=== PATIENT | female | born 1945 ===

== ENCOUNTER 2017-12-06 12:27 | Emergency (ER) | payer MEDICARE, BC ==
--- NOTE | 2017-12-06 13:12 | UC ---
Respiratory Complaint HPI - HPI Summary HPI Summary: 3-4 DAYS OF LOW GRADE FEVER, MACIAS, FATIGUE, CONGESTION AND LEFT SIDED PLEURITIC PAIN. HAS MILD COUGH. DENIES SOB OR CP. - History of Current Complaint Chief Complaint: UCRespiratory Stated Complaint: FEVER, CHEST COMPLAINT Time Seen by Provider: 12/06/17 12:47 Hx Obtained From: Patient Onset/Duration: Gradual Onset, Lasting Days, Still Present Timing: Constant Severity Initially: Moderate Severity Currently: Moderate Pain Intensity: 0 Pain Scale Used: 0-10 Numeric Character: Cough: Nonproductive Aggravating Factors: Nothing Alleviating Factors: Nothing Associated Signs And Symptoms: Positive: Fever, Chills, Nasal Congestion. Negative: Dyspnea, Hemoptysis - Allergies/Home Medications Allergies/Adverse Reactions: Allergies Allergy/AdvReac Type Severity Reaction Status Date / Time Penicillins Allergy Altered Verified 12/06/17 12:39 Mental Status sulfamethoxazole Allergy Hives Verified 12/06/17 12:39 [From Bactrim] trimethoprim [From Bactrim] Allergy Hives Verified 12/06/17 12:39 Home Medications: Home Medications Folic Acid TAB* [Folvite TAB*] 1 mg PO DAILY 12/06/17 [History Confirmed ] Hydroxychloroquine TAB* [Plaquenil TAB*] 200 mg PO BID 12/06/17 [History Confirmed 12/06/17] Methotrexate/Pf [Otrexup 25 mg/0.4 ml Auto-Inj] 25 mg SUBCUT WEEKLY 12/06/17 [ History Confirmed 12/06/17] Montelukast Sodium TAB* [Singulair 10 MG TAB*] 10 mg PO DAILY 12/06/17 [History Confirmed 12/06/17] celeCOXIB CAP* [Celebrex CAP*] 200 mg PO DAILY 12/06/17 [History Confirmed 12/06] oxyCODONE/Acetam5/325MG PREPAK [Percocet 5/325 TAB*] 1 tab PO PRN 12/06/17 [ History] predniSONE TAB* [Deltasone 1 MG TAB*] 4 mg PO DAILY 12/06/17 [History Confirmed 12/06/17] traZODone TAB* [Desyrel TAB*] 100 mg PO DAILY 12/06/17 [History Confirmed ] PMH/Surg Hx/FS Hx/Imm Hx - Additional Past Medical History Additional PMH: ARTHRITIS - Surgical History Surgical History: Yes Surgery Procedure, Year, and Place: 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 jacquelyn. cataracts, - Family History Known Family History: Negative: Hypertension - Social History Alcohol Use: None Substance Use Type: None Smoking Status (MU): Former Smoker Review of Systems Constitutional: Fever, Chills, Fatigue ENT: Nasal Discharge Respiratory: Cough Cardiovascular: Negative Gastrointestinal: Negative Neurological: Headache All Other Systems Reviewed And Are Negative: Yes Physical Exam Triage Information Reviewed: Yes Appearance: Well-Appearing, No Pain Distress, Well-Nourished Vital Signs: Initial Vital Signs Temp 98.5 F 12/06/17 12:45 Pulse 67 12/06/17 12:45 Resp 18 12/06/17 12:45 BP 148/67 12/06/17 12:45 Pulse Ox 97 12/06/17 12:45 Vital Signs Reviewed: Yes Eyes: Positive: Conjunctiva Clear ENT: Positive: Hearing grossly normal, Pharynx normal, TMs normal Neck: Positive: Supple, Nontender, No Lymphadenopathy Respiratory Exam: Normal Cardiovascular Exam: Normal Abdomen Description: Positive: Soft Musculoskeletal: Positive: No Edema Neurological: Positive: Alert Psychological: Positive: Age Appropriate Behavior Skin: Negative: rashes UC Diagnostic Evaluation - Laboratory O2 Sat by Pulse Oximetry: 97 - Radiology Xray Interpretation: Positive (See Comments) - CXR - LEFT UPPER LOBE CONSOLIDATION. Radiology Interpretation Completed By: Radiologist Respiratory Course/Dx - Differential Dx/Diagnosis Provider Diagnoses: LEFT UPPER LOBE PNEUMONIA Discharge - Sign-Out/Discharge Documenting (check all that apply): Patient Departure All imaging exams completed and their final reports reviewed: Yes - Discharge Plan Condition: Stable Disposition: HOME Prescriptions: levoFLOXacin [Levofloxacin] 750 mg PO DAILY #7 tablet Patient Education Materials: Pneumonia (ED) Referrals: Care [facility] [Outside] - 2 Weeks Additional Instructions: CHEST X-RAY SHOWS A PNEUMONIA IN THE LEFT LUNG. TAKE THE ANTIBIOTIC DAILY FOR 7 DAYS IN THE MORNING. RECOMMEND REPEAT CHEST X-RAY IN 4-6 WEEKS TO DOCUMENT RESOLUTION. FOLLOW-UP WITH A PCP IF YOU'RE NOT IMPROVING EXPECTED. GO TO THE ED WITHOUT FAIL IF YOU DEVELOP WORSENING FEVER, SHORTNESS OF BREATH, CHEST PAIN OR ANY OTHER CONCERNING SYMPTOMS. CALL THE NUMBER BELOW FOR ASSISTANCE IN ESTABLISHING WITH A PCP An additional resource available to assist in finding the appropriate physician for your health care needs is [facility] ([facility]). You may contact them by calling [phone]. - Billing Disposition and Condition Condition: STABLE Disposition: Home
--- NOTE | 2017-12-06 13:32 | RAD ---
HISTORY: FEVER, COUGH, LEFT SIDED PLEURITIC PAIN COMPARISONS: None VIEWS: 4: Frontal dual-energy and lateral views of the chest. FINDINGS: CARDIOMEDIASTINAL SILHOUETTE: The cardiomediastinal silhouette is normal. LEATHA: The leatha are normal. PLEURA: The costophrenic angles are sharp. No pleural abnormalities are noted. LUNG PARENCHYMA: There is confluent alveolar opacification within the periphery of the left upper lobe ABDOMEN: The upper abdomen is clear. There is no subphrenic gas. BONES AND SOFT TISSUES: Mild degenerative changes are noted. OTHER: None. IMPRESSION: LEFT UPPER LOBE CONSOLIDATION. RECOMMEND FOLLOW-UP UNTIL RESOLUTION TO EXCLUDE UNDERLYING PULMONARY PARENCHYMAL PATHOLOGY.
== END 2017-12-06 14:06 | disposition home or self-care (01) ==
LOC: UCEAST 12:27
DX: J18.9 Pneumonia, unspecified organism (principal); Z87.891 Personal history of nicotine dependence; Z88.0 Allergy status to penicillin; Z88.2 Allergy status to sulfonamides
CPT/HCPCS: 71046; 99202; G0463